=== PATIENT | female | born 2000 | race Caucasian/White ===

== ENCOUNTER 2018-04-09 12:23 | Day surgery (SDC) | payer BC, OTHER ==
[2018-04-09] MEDS ORDERED: PROPOFOL 20 ML (14:23)
[2018-04-09] MEDS ORDERED: ONDANSETRON 4 MG INJ IV (14:30)
== END 2018-04-09 17:14 | disposition home or self-care (01) ==
LOC: GIL 12:23
DX: K92.1 Melena (principal); K64.0 First degree hemorrhoids; K62.1 Rectal polyp
CPT/HCPCS: 45380; 84703; 88305